=== PATIENT | male | born 1990 | race African-American/Black ===

== ENCOUNTER 2017-03-31 19:01 | Emergency (ER) | payer OTHER ==
[~2017-03-31 19:01] MED LIST: BENTYL20 MG PO; NORCO 5-325 TA1 EACH PO; OMEPRAZOLE40 MG PO; PHENERGAN25 M1 PO; ZOFRAN4 MG PO
[2017-03-31 20:49] LABS: BASOPHIL 0.5 % (0-2); BILIRUBIN NEGATIVE (NEGATIVE); BLOOD NEGATIVE Ery/uL (NEGATIVE); CLARITY CLEAR (CLEAR); COLOR YELLOW (YELLOW); EOSINOPHIL 2.5 % (0-5); GLUCOSE (U) NORMAL (NORMAL); HCT 43.1 % (42.0-52.0); HGB 15.2 g/dl (13.2-18.0); KETONE (U) NEGATIVE (NEGATIVE); LEUKOCYTES NEGATIVE Leu/uL (NEGATIVE); LYMPHOCYTE 37.7 % (15-48); MCH 29.2 pg (25.0-31.0); MCHC 35.3 g/dL (32.0-36.0); MCV 82.9 fL (78.0-100.0); MONOCYTE 6.6 % (0-12); MPV 8.8 fL (6.0-9.5); NEUTROPHIL 52.7 % (41-80); NITRITE NEGATIVE (NEGATIVE); PLT 259 K/uL (150-400); PROTEIN NEGATIVE (NEGATIVE); RDW 12.1 % (11.5-14.0); SPECIFIC GRAVITY 1.015 (1.001-1.030); WBC 6.5 K/uL (4.0-10.5)
[2017-03-31 21:02] LABS: ALBUMIN 4.8 g/dL (3.5-5.0); BILIRUBIN - DIRECT 0.2 mg/dL (0.0-0.2); BILIRUBIN - TOTAL 0.3 mg/dL (0.1-1.0); CREATININE 0.9 mg/dL (0.7-1.2); GLOBULIN (CALCULATION) 2.9 g/dL (2.2-4.2); POTASSIUM 4.3 mmol/L (3.5-5.1); TOTAL PROTEIN 7.7 g/dL (6.4-8.3)
== END 2017-03-31 21:55 | disposition home or self-care (01) ==
LOC: FER 19:01
PROVIDERS: Emergency Medicine
DX: K58.0 Irritable bowel syndrome with diarrhea (principal); Z83.79 Family history of other diseases of the digestive system; F17.200 Nicotine dependence, unspecified, uncomplicated; Z79.899 Other long term (current) drug therapy; Z90.89 Acquired absence of other organs
CPT/HCPCS: 36415; 80053; 81003; 82150; 82248; 83690; 85025; 99284